=== PATIENT | female | born 1995 | race Hispanic/Latino ===

== ENCOUNTER 2022-01-18 02:27 | Emergency (ER) | payer BC ==
[~2022-01-18] VITALS: Ht 160 cm; Wt 151.3 kg
[~2022-01-18 02:27] MED LIST: NAPROSYN500 MG PO; ONDANSETRON ODT8 MG PO
[2022-01-18] MEDS ORDERED: KETOROLAC TROMETHAMINE 30 MG/ML VIAL IV STA (02:39)
[2022-01-18] MEDS ORDERED: ONDANSETRON HCL INJ 2MG/ML 2ML 2 MG/ML VIAL IV STA (02:39)
[2022-01-18] MEDS ORDERED: SODIUM CHLORIDE 0.9% 1000ML 1,000 ML IV SCH (02:45)
[2022-01-18] MEDS ORDERED: Morphine 2mg Syringe 2 MG/ML SYR IV ONE (02:45)
[2022-01-18] MEDS ORDERED: ONDANSETRON HCL INJ 2MG/ML 2ML 2 MG/ML VIAL ONE (03:12)
[2022-01-18] MEDS ORDERED: KETOROLAC TROMETHAMINE 30 MG/ML VIAL ONE (03:12)
[2022-01-18] MEDS ORDERED: SODIUM CHLORIDE 0.9% 1000ML 1,000 ML ONE (03:13)
[2022-01-18] MEDS ORDERED: Morphine 4mg Syringe 4 MG/ML INJ ONE (03:13)
[2022-01-18 06:28] VITALS: BP 146/84
[2022-01-18] MEDS ORDERED: ONDANSETRON ODT4 MG PO (06:35)
[2022-01-18] MEDS ORDERED: CIPRO500 MG PO (06:35)
[2022-01-18] MEDS ORDERED: KETOROLAC TROME10 MG PO (06:35)
== END 2022-01-18 06:40 | disposition home or self-care (01) ==
LOC: FSED 02:40
DX: R10.11 Right upper quadrant pain (principal); K80.80 Other cholelithiasis without obstruction
CPT/HCPCS: 80053; 80076; 85025; 96374; 96375; 96376; 99283; J1885; J2270; J2405; J7030